=== PATIENT | female | born 1970 | race Caucasian/White ===

== ENCOUNTER → 2023-05-26 | Outpatient (CLI) | payer OTHER ==
[2023-05-26 14:38] LABS: Stool Occult Bld Immuno 1 Positive (NEGATIVE)
== END | disposition home or self-care (01) ==
LOC: LAB 07:48 → LAB SHORT 07:48
PROVIDERS: Physician Assistant
DX: Z12.11 Encounter for screening for malignant neoplasm of colon (principal)
CPT/HCPCS: G0328

== ENCOUNTER 2023-08-23 08:43 | Day surgery (SDC) | payer OTHER ==
[~2023-08-23] VITALS: Ht 172.7 cm; Wt 78.2 kg
[2023-08-23] VITALS (22 sets, daily range): BP systolic 102–134; BP diastolic 54–109
[~2023-08-23 08:43] MED LIST: Lactated Ringer's 1,000 ML IV SCH; PREG50 PO; TRAZ150T57 PO
--- NOTE | 2023-08-23 10:01 | NUR ---
Ambulatory in Day Surgery. Patient states colon prep results clear. History, Chart, Medications and Allergies reviewed before start of procedure.Lungs clear T/O to Auscultation. Patient confirms NPO status and agrees with scheduled surgery. Pre-Op teaching done. Pt verbalizes understanding. Patient States Post-Procedure ride home has been arranged.
[2023-08-23] MEDS ORDERED: propofoL 40 ML IV ONE (10:15)
--- NOTE | 2023-08-23 10:26 | NUR ---
08/23/23 1026 Tara Simon HISTORY, CHART, MEDICATIONS AND ALLERGIES REVIEWED BEFORE START OF PROCEDURE. PATIENT CONFIRMS NPO STATUS AND AGREES WITH SCHEDULED PROCEDURE. 3-LEAD EKG REVIEWED WITH PHYSICIAN PRIOR TO START OF PROCEDURE. MONITOR INTACT WITH CONTINUOUS PULSE OXIMETRY,CAPNOGRAPHY, 3-LEAD EKG, INTERMITTENT BP. SUPPLEMENTAL O2 TO BE TITRATED THROUGHOUT PROCEDURE TO MAINTAIN O2 SATURATION ABOVE 90%. PATIENT DETERMINED TO BE ASA APPROPRIATE FOR PROPOFOL SEDATION PRIOR TO START OF PROCEDURE BY DR. HAHN. MALLAMPATI CLASS 1 AIRWAY: COMPLETE VISULATIZATION OF THE SOFT PALATE.
[2023-08-23] MEDS ORDERED: Midazolam HCl 1MG / ML 2ML Vial ONE (10:30)
[2023-08-23] MEDS ORDERED: propofoL 20 ML IV ONE (10:34)
--- NOTE | 2023-08-23 11:18 | NUR ---
1103 REPORT RECEIVED FROM CANDIDO CARROLL. PT MOVING AROUND, ACCIDENTALLY RIPPED OUT IV IN TRANSFER TO [facility]. PT DENIES PAIN, NAUSEA OR OTHER DISCOMFORTS. PT REQUESTING PO FLUIDS AND TOLERATING THEM WELL.
== END 2023-08-23 11:44 | disposition home or self-care (01) ==
LOC: ORSCMMR 08:43 → ORD 09:30 → ORSCMMR 11:44
PROVIDERS: Internal Medicine Gastroenterology
PROC: 0DBL8ZX Excision of Transverse Colon, Via Natural or Artificial Opening Endoscopic, Diagnostic (ICD-10-PCS; principal; 2023-08-23 09:30)
PROC: 0DBK8ZX Excision of Ascending Colon, Via Natural or Artificial Opening Endoscopic, Diagnostic (ICD-10-PCS; principal; 2023-08-23 09:30)
PROC: 0DBN8ZX Excision of Sigmoid Colon, Via Natural or Artificial Opening Endoscopic, Diagnostic (ICD-10-PCS; principal; 2023-08-23 09:30)
DX: R19.7 Diarrhea, unspecified (principal); D12.5 Benign neoplasm of sigmoid colon; K92.1 Melena; Z98.84 Bariatric surgery status; Z79.899 Other long term (current) drug therapy
CPT/HCPCS: 88305; J2250; J2704; J7120